=== PATIENT | male | born 1945 | race Caucasian/White ===

== ENCOUNTER 2016-11-28 19:08 | Emergency (ER) | payer MEDICARE, BC ==
[2016-11-28] MEDS ORDERED: DOXYcycline CAP(*) 100 MG PO ONE (20:30)
[2016-11-28 21:40] LABS: Hematocrit 42 % (42-52); Hemoglobin 14.2 g/dl (14.0-18.0); Mean Corpuscular HGB Conc 34 g/dl (31-36); Mean Corpuscular Hemoglobin 34 pg (27-31); Mean Corpuscular Volume 101 fL (80-94); Mean Platelet Volume 10 um3 (7.4-10.4); Red Blood Count 4.14 10^6/ul (4.0-5.4); Red Cell Distribution Width 13 % (10.5-15); White Blood Count 3.7 10^3/ul (3.5-10.8)
[2016-11-28 21:45] LABS: Comments Flag Yes
[2016-11-28 21:46] LABS: Add Diff/Slide Review? Slide Review Added
--- NOTE | 2016-11-28 22:38 | ED ---
Brigitte Khalil Salem, scribed for Giovanny Hansen MD on 11/28/16 at 2054 . Skin Complaint - HPI Summary HPI Summary: Patient is a 71 y/o M who presents to the ED with a fever throughout most of the day, worse since onset. He reports a bullseye to left shoulder. He states that he took Tylenol this morning because of right shoulder pain secondary to physical activity, but is unsure if fever was present at that time. Pt also states that he was seen at the Urgent care out of a concern of his hx of UTI and sepsis last year. - History of Current Complaint Chief Complaint: EDFever Time Seen by Provider: 11/28/16 20:21 Stated Complaint: FEVER Hx Obtained From: Patient, Family/Nurseryman Assistant Onset/Duration: Started Hours Ago, Atraumatic, Still Present, Worse Since Timing: Constant Onset Severity: Moderate Current Severity: Moderate Pain Intensity: 0 Pain Scale Used: 0-10 Numeric Skin Location: Other: - Left shoulder. Character: Redness Aggravating Symptom(s): Nothing Alleviating Symptom(s): Nothing Associated Signs & Symptoms: Fever Related History: Possible Reaction to: Insect - Additional Pertinent History Primary Care Physician: [id number] - Allergy/Home Medications Allergies/Adverse Reactions: Allergies Allergy/AdvReac Type Severity Reaction Status Date / Time No Known Allergies Allergy Verified 11/28/16 21:42 PMH/Surg Hx/FS Hx/Imm Hx Endocrine/Hematology History: Reports: Hx Anemia Denies: Hx Diabetes Cardiovascular History: Reports: Hx Atrial Fibrillation Denies: Hx Angina, Hx Coronary Artery Disease, Hx Hypercholesterolemia, Hx Hypertension, Hx Myocardial Infarction, Hx Valvular Heart Disease Respiratory History: Denies: Hx Asthma, Hx Chronic Obstructive Pulmonary Disease (COPD) History: Reports: Other Problems/Disorders - prostate ca Sensory History: Reports: Hx Contacts or Glasses Opthamlomology History: Reports: Hx Contacts or Glasses - Cancer History Cancer Type, Location and Year: Prostate CA, prostatectomy - Surgical History Surgery Procedure, Year, and Place: PROSTATECTOMY Infectious Disease History: No Infectious Disease History: Denies: Traveled Outside the [place] in Last 30 Days - Family History Known Family History: Positive: Hypertension Family History: Prostate CA: Father, grandfather - Social History Alcohol Use: Rare Alcohol Amount: 1 DRINK Hx Substance Use: No Substance Use Type: Reports: None Hx Tobacco Use: No Smoking Status (MU): Never Smoked Tobacco Review of Systems Positive: Fever Negative: Vomiting Positive: Other - Right shoulder pain. Positive: Other - "Bullseye" to left shoulder. All Other Systems Reviewed And Are Negative: Yes Physical Exam Triage Information Reviewed: Yes Vital Signs On Initial Exam: Initial Vitals Temp Pulse Resp BP Pulse Ox 98.6 F 64 18 150/84 100 11/28/16 19:17 11/28/16 19:17 11/28/16 19:17 11/28/16 19:17 11/28/16 19:17 Vital Signs Reviewed: Yes Appearance: Positive: Well-Appearing, No Pain Distress Skin: Positive: Warm, Skin Color Reflects Adequate Perfusion, Dry, Other - 6 to 7cm bullseye lesion on left deltoid. Head/Face: Positive: Normal Head/Face Inspection Eyes: Positive: Normal Neck: Positive: Supple, Nontender Respiratory/Lung Sounds: Positive: Clear to Auscultation, Breath Sounds Present Cardiovascular: Positive: RRR Abdomen Description: Positive: Nontender, Soft Bowel Sounds: Positive: Present Musculoskeletal: Positive: Normal Neurological: Positive: Normal Psychiatric: Positive: Normal, Affect/Mood Appropriate Diagnostics - Vital Signs Vital Signs Temp Pulse Resp BP Pulse Ox 11/28/16 20:20 99.7 F 68 16 128/79 98 11/28/16 20:17 64 97 11/28/16 20:15 128/79 11/28/16 19:17 98.6 F 64 18 150/84 100 - Laboratory Lab Results: Lab Results 11/28/16 11/28/16 Range/Units 21:22 21:22 WBC 3.7 (3.5-10.8) 10^3/ul RBC 4.14 (4.0-5.4) 10^6/ul Hgb 14.2 (14.0-18.0) g/dl Hct 42 (42-52) % MCV 101 H (80-94) fL MCH 34 H (27-31) pg MCHC 34 (31-36) g/dl RDW 13 (10.5-15) % Plt Count 77 L (150-450) 10^3/ul MPV 10 (7.4-10.4) um3 Neut % (Auto) 75.9 (38-83) % Lymph % (Auto) 10.7 L (25-47) % Kent % (Auto) 12.8 H (1-9) % Eos % (Auto) 0.1 (0-6) % Baso % (Auto) 0.5 (0-2) % Absolute Neuts (auto) 2.8 (1.5-7.7) 10^3/ul Absolute Lymphs (auto) 0.4 L (1.0-4.8) 10^3/ul Absolute Monos (auto) 0.5 (0-0.8) 10^3/ul Absolute Eos (auto) 0 (0-0.6) 10^3/ul Absolute Basos (auto) 0 (0-0.2) 10^3/ul Absolute Nucleated RBC 0 10^3/ul Nucleated RBC % 0.1 C-Reactive Protein 41.51 H (< 5.00) mg/L Result Diagrams: 11/28/16 21:22 Lab Statement: Any lab studies that have been ordered have been reviewed, and results considered in the medical decision making process. Re-Evaluation - Re-Evaluation First Eval Re-Evaluation Time: 22:15 Comment: Discussed plan with pt. Course/Dx - Course Course Of Treatment: Mr. Kulkarni presented with fever and was found to have a lesion on his shoulder that looks like erythema chronica migrans. Labs were sent out for tick-borne PCR and he was treated with doxycycline. - Diagnoses Provider Diagnoses: tick borne illness Discharge - Discharge Plan Condition: Stable Disposition: HOME Prescriptions: DOXYcycline CAP(*) [DOXYcycline 100MG CAP(*)] 100 mg PO BID #28 cap Patient Education Materials: Tick Bite (ED) Referrals: Pete Baeza MD [Primary Care Provider] - Additional Instructions: Please follow up with your primary care provider. The documentation as recorded by the Brigitte rush Salem accurately reflects the service I personally performed and the decisions made by , Giovanny Hansen MD.
[2016-11-28 22:51] VITALS: BP 122/81
[2016-12-02 01:31] LABS: B garinii/B afzelii PCR Negative (Negative); B mayonii PCR Negative (Negative); B. miyamotoi PCR, B Negative (Negative); Babesia divergens/MO-1 Negative (Negative); Babesia ducani Negative (Negative); Ehrlichia ewingii/canis Negative (Negative)
== END 2016-11-28 22:45 | disposition home or self-care (01) ==
LOC: ED 19:08
DX: A93.8 Other specified arthropod-borne viral fevers (principal); R21 Rash and other nonspecific skin eruption; Z87.440 Personal history of urinary (tract) infections; I48.91 Unspecified atrial fibrillation; Z85.46 Personal history of malignant neoplasm of prostate; Z90.79 Acquired absence of other genital organ(s)
CPT/HCPCS: 36415; 85025; 86140; 87476; 87798; 99283; A9270-GY

== ENCOUNTER 2018-09-19 09:36 | Emergency (ER) | payer MEDICARE, BC ==
--- OUTSIDE RECORDS SUMMARY | 2018-09-19 10:26 | XMS REPORT | Continuity of Care Document ---
:1945 External Reference #:[id number] Author Name Gilson Conn M.D. Address [address] [place] [address] Care Team Providers Name Role Phone Pete Baeza M.D. Primary Care Physician Unavailable Payers Date Identification Numbers Payment Provider Subscriber Policy Number: [id number] Medicare - [facility] Giovanny Kulkarni PayID: [id number] [address] [place] [address] Policy Number: [id number] [facility] Giovanny Morales Kulkarni PayID: [id number] [address] [address] [place] [address] Advance Directives Description No Information Available Problems Active Problems Provider Date Gastroesophageal reflux disease Onset: History of malignant neoplasm of prostate Onset: Atrial fibrillation Onset: Nuclear senile cataract Gilson Conn M.D. Onset: 05/11/2015 Migraine with typical aura Gilson Conn M.D. Onset: 07/13/2017 Lyme disease Onset: Vitreous opacities Gilson Conn M.D. 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 ETOH Use Occasionally consumes alcohol Tobacco Use Start: Unknown Patient has never smoked Recreational Drug Use Never Used Drugs Smoking Status Reviewed: 08/30/18 Patient has never smoked Allergies, Adverse Reactions, Alerts Description No Known Drug Allergies Medications Active Medications SIG Qnty Indications Ordering Provider Date Atenolol daily Unknown 25mg Tablets Viagra as needed Unknown 50mg Tablets Vitamin B-12 1 daily Unknown 500mcg Tablets Sub Lorazepam 1/2 pill as Unknown 2mg Tablets needed Prevacid as needed Unknown 15mg Capsules DR Multivitamin Adult daily Unknown Tablets Immunizations Description No Information Available Vital Signs Description No Information Available Results Description No Information Available Procedures Date Code Description Status 07/13/2017 64158 Est Patient Comprehensive Exam Completed 06/20/2016 02109 Est Patient Comprehensive Exam Completed 05/11/2015 56224 Est Patient Comprehensive Exam Completed 02/24/2013 31354 Est Patient Comprehensive Exam Completed 02/24/2011 67651 Est Patient Comprehensive Exam Completed 01/24/2009 13971 Est Patient Comprehensive Exam Completed 12/30/2006 51128 Determination Of Refractive State Completed 12/30/2006 62774 Est Patient Comprehensive Exam Completed 12/18/2004 46663 Determination Of Refractive State Completed 12/18/2004 99092 Est Patient Comprehensive Exam Completed Encounters Description No Information Available Plan of Treatment 08/30/2018 - Gilson Conn M.D.H25.13 Age-related nuclear cataract, bilateralComments:Smoking can increase the risk of developing or worsening any eye related disease, as well as affect your overall health. If you are a smoker , we strongly recommend that you quit.If you are not a smoker, we strongly recommend that you do not start. You have been diagnosed with cataracts. If you are happy with your vision as it is now, then we will see you at your next scheduled appointment. If you feel like your vision is getting worse before your scheduled appointment, please call Tila Iglesias at .Follow up:1 Year Follow Up Diagnostic Refraction You can expect to have your eyes dilated at your next visit.If Dr. Conn orders any additional testing , it may require extra time. We recommend that you bring sunglasses, as dilation drops often make you light sensitive until they wear off. We always recommend you bring someone to drive you home if you are uncomfortable driving with your eyes dilated. If you have any questions before your next visit, feel free to call our office at .H43.393 Other vitreous opacities, bilateral
[2018-09-19 10:33] VITALS: BP 141/81
--- NOTE | 2018-09-19 11:14 | UC ---
General HPI - HPI Summary HPI Summary: Patient has a swollen thumb it is not painful and he did injure it back in may 11 opening a jar, but it resolved. he was playing gold. his entire hand swelled. he now has just thumb swelling. he is concerned as he had lyme 1 year ago and has had muscular pain and multiple joint pain and weakness since then. Very fatiqued and not able to do much - History of Current Complaint Chief Complaint: UCUpperExtremity Stated Complaint: SWOLLEN THUMB Time Seen by Provider: 09/19/18 10:34 Hx Obtained From: Patient Onset/Duration: Gradual Onset, Lasting Days Timing: Constant Onset Severity: Mild Current Severity: None Pain Intensity: 0 - Allergy/Home Medications Allergies/Adverse Reactions: Allergies Allergy/AdvReac Type Severity Reaction Status Date / Time No Known Allergies Allergy Verified 09/19/18 10:33 PMH/Surg Hx/FS Hx/Imm Hx Previously Healthy: Yes - Surgical History Surgical History: Yes Surgery Procedure, Year, and Place: PROSTATECTOMY, cholecystectomy, hernia - Family History Known Family History: Positive: Hypertension Family History: Prostate CA: Father, grandfather - Social History Alcohol Use: Occasionally Alcohol Amount: 1 DRINK Substance Use Type: None Smoking Status (MU): Never Smoked Tobacco - Immunization History Most Recent Influenza Vaccination: 2014 Most Recent Tetanus Shot: unk Most Recent Pneumonia Vaccination: up to date Review of Systems All Other Systems Reviewed And Are Negative: Yes Constitutional: Positive: Fatigue Musculoskeletal: Positive: Arthralgia, Decreased ROM, Edema, Myalgia Is Patient Immunocompromised?: No Physical Exam Triage Information Reviewed: Yes Appearance: Well-Appearing, Well-Nourished, Pain Distress Vital Signs: Initial Vital Signs Temp 96.8 F 09/19/18 10:26 Pulse 61 09/19/18 10:26 Resp 16 09/19/18 10:26 BP 141/81 09/19/18 10:26 Pulse Ox 100 09/19/18 10:26 Vital Signs Reviewed: Yes Eye Exam: Normal ENT Exam: Normal Dental Exam: Normal Neck exam: Normal Respiratory Exam: Normal Cardiovascular Exam: Normal Abdominal Exam: Normal Bowel Sounds: Positive: Present Musculoskeletal: Positive: 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 follow up with dr Gar for your joint and muscle aches for possible post lyme disease syndrome 2. Your xray shows arthritis in the thumb 3. Follow up with orthopedics as needed. 4. Warm water soaks will help with the swelling. - Billing Disposition and Condition Condition: STABLE Disposition: Home - Attestation Statements Provider Attestation: I was available for consult. This patient was seen by the KRISTOPHER and plan of care discussed with me. The patient was not seen by or examined by me -Janis Diaz MD
--- NOTE | 2018-09-20 07:56 | PN ---
Progress Note - Progress Note Date of Service: 09/19/18 Note: Xray thumb NEG
== END 2018-09-19 11:26 | disposition home or self-care (01) ==
LOC: UCEAST 09:36
DX: M79.89 Other specified soft tissue disorders (principal); M19.042 Primary osteoarthritis, left hand; R53.83 Other fatigue; A69.20 Lyme disease, unspecified
CPT/HCPCS: 99211; G0463

== ENCOUNTER 2019-02-15 00:22 | Emergency (ER) | payer MEDICARE, BC ==
[2019-02-15] MEDS ORDERED: Ondansetron INJ* 2 MG/ML VIAL IV ONE (00:28)
[2019-02-15] MEDS ORDERED: NS 0.9% 1000 ML** 2,000 ML IV ONE (00:28)
[2019-02-15] MEDS ORDERED: Morphine 4 MG/ML VIAL (1 ml) 4 MG/ML VIAL IV ONE (00:28)
--- OUTSIDE RECORDS SUMMARY | 2019-02-15 00:40 | XMS REPORT | Continuity of Care Document ---
:1945 External Reference #:[id number] Author Name Parrish Gramajo MD (transmitted by agent of provider Leni Pacheco) Address [address] [place] [id number] Care Team Providers Name Role Phone Pete Baeza MD - Shake Backboard Notcher Care Team Information Welder Tack [phone] Problems Active Problems Provider Date Dyspnea Klever Abdi M.D., [facility], [facility] Onset: 02/08/2018 Paroxysmal [facility]: Atrial fibrillation [facility] Onset: 09/14/2013 Social History Type Date Description Comments Sex Unknown ETOH Use Occasionally consumes alcohol Tobacco Use Start: Unknown Patient has never smoked Recreational Drug Use Denies Drug Use Smoking Status Reviewed: 02/03/19 Patient has never smoked Exercise Type/Frequency Exercises regularly Allergies, Adverse Reactions, Alerts Active Allergies Reaction Severity Comments Date Aspirin avoids due to bleeding problem 09/05/2015 Inactive Allergies NKDA 09/14/2013 Medications Active Medications SIG Qnty Indications Ordering Date Provider Atenolol 1 by mouth every 90tabs Klever Cerda 01/11/2018 25mg Tablets day Kei Abdi, [facility] Lorazepam 1 every 6 hours as 90tabs Unknown 1mg Tablets needed Viagra by mouth 0.5 or 1 12tabs Unknown 100mg Tablets tab 1h before intercourse Multivitamins 1 by mouth every 30caps Unknown Capsules day(with iron) Lansoprazole 1 by mouth as 30caps Unknown 15mg needed Capsules DR MARTINEZ Vitamin B12 1 by mouth every 90tabs Unknown 500mcg day Tablets Acetaminophen Extra 1-2 tabs 3 times Unknown Strength daily as needed for 500mg Tablets pain Probiotic 1 by mouth every Unknown Capsules day as needed Imodium A-D as directed Unknown 2mg Tablets Claritin 1 by mouth every Unknown 10mg Capsules day as needed Benadryl Allergy take 1-2 tablets by Unknown 25mg mouth every night Capsules at bedtime as needed Iron 27 1 by mouth every Unknown 240(27Fe) mg other day Tablets Medications Administered in Office Medication SIG Qnty Indications Ordering Provider Date Inj, Regadenoson, 0.1 MG Klever Abdi M.D., 03/22/2018 Injection FACC, FASNC Technetium TC 99M Klever Abdi M.D., 03/22/2018 Tetrofosmin, Per Unit Dose CECILC, FASNC Up To 40 Millicuries Injection Technetium TC 99M Klever Abdi M.D., 09/08/2016 Tetrofosmin, Per Unit Dose FACC, FASNC Up To 40 Millicuries Injection Immunizations Description No Information Available Vital Signs Date Vital Result Comment 02/03/2019 2:33pm Height 72 inches 6'0" Weight 165.00 lb w/ shoes Heart Rate 56 /min BP Systolic Sitting 128 mmHg BP Diastolic Sitting 83 mmHg BMI (Body Mass Index) 22.4 kg/m2 10/19/2018 9:41am Height 72 inches 6'0" Weight 169.50 lb Heart Rate 60 /min BP Systolic Sitting 110 mmHg BP Diastolic Sitting 72 mmHg Respiratory Rate 14 /min Body Temperature 96.8 F BMI (Body Mass Index) 23.0 kg/m2 Results Test Date Facility Test Result H/L Range Note Vitamin B12 And 11/01/2018 [facility] Vitamin B12 1212 pg/mL High 180-914 1 Folate Serum [address] [place] [address] [phone] Folic Acid (Folate) > 20.00 ng/mL >3.99 Laboratory test 11/01/2018 [facility] Ferritin 104.8 ng/mL Normal 24-[address] [place] [address] [phone] Iron & Iron 11/01/2018 [facility] Iron 130 g/dL Normal 50- 212 Binding Capacity [address] [place] [address] [phone] Unsaturated Iron Binding < 248 g/dL Total Iron Binding Capacity 263 g/dL Normal 250-450 Transferrin 188 mg/dL Low 203-362 % Iron Saturation 49 % Normal 15-55 Laboratory test 10/05/2018 [facility] C Reactive 7.32 mg/L Normal <8.[address] [place] [address] [phone] Connective 10/05/2018 [facility] Anti-Nuclear 0.5 U [address] [place] [address] [phone] Cyclic Citrullinated Peptide <15.6 U 3 Interpretation See Comment 4 CBC Auto 10/05/2018 [facility] White Blood 4.0 10^3/uL Normal 3.5-10.[address] [place] [address] [phone] Red Blood Count 3.55 10^6/uL Low 4.18-5.48 Hemoglobin 11.9 g/dL Low 14.0-18.0 Hematocrit 35 % Low 42-52 Mean Corpuscular Volume 98 fL High 80-94 Mean Corpuscular Hemoglobin 34 pg High 27-31 Mean Corpuscular HGB Conc 34 g/dL Normal 31-36 Red Cell Distribution Width 13 % Normal 10.5-15 Platelet Count 113 10^3/uL Low 150-450 Mean Platelet Volume 9.5 fL Normal 7.4-10.4 Abs Neutrophils 2.0 10^3/uL Normal 1.5-7.7 Abs Lymphocytes 1.3 10^3/uL Normal 1.0-4.8 Abs Monocytes 0.5 10^3/uL Normal 0-0.8 Abs Eosinophils 0.2 10^3/uL Normal 0-0.6 Abs Basophils 0.0 10^3/uL Normal 0-0.2 Abs Nucleated RBC 0.0 10^3/uL Granulocyte % 48.9 % Lymphocyte % 32.9 % Monocyte % 12.9 % Eosinophil % 4.5 % Basophil % 0.8 % Nucleated Red Blood Cells % 0.1 Laboratory test 10/05/2018 [facility] Erythrocyte Sed 13 mm/Hr Normal 0-[address] [place] [address] [phone] 1 Normal Range 180 to 914 Indeterminate Range 145 to 180 Deficient Range <145 2 REFERENCE VALUE <=1.0 (Negative) 3 REFERENCE VALUE <20.0 (Negative) 4 Tests for antibodies to dsDNA and ELICIA antigens are not performed automatically unless the RITA result is > or = 3.0 U. Studies performed at [facility] indicate that positive RITA results <3.0 U are rarely accompanied by positive second order tests. Test Performed by: [facility] [address] [place] [address] Procedures Description No Information Available Medical Devices Description No Information Available Encounters Type Date Location Provider Dx Diagnosis Office Visit 10/19/2018 [facility] Yuan R53.83 Other fatigue 9:30a Infectious Diseases Kei Gar D64.9 Anemia, unspecified Office Visit 10/12/2018 9:30a [facility]opedic Abner M65.312 Trigger thumb, [facility] [place] left thumb C.M.A. Office Visit 10/05/2018 9:30a [facility] Yuan M79.10 Myalgia , Infectious Cong, unspecified site Diseases Kei M25.542 Pain in joints of left hand Assessments Date Code Description Provider 02/03/2019 E29.1 Testicular hypofunction Parrish Gramajo MD 02/03/2019 C61 Malignant neoplasm of prostate Parrish Gramajo MD 10/19/2018 R53.83 Other fatigue Scott Gar M.D. 10/19/2018 D64.9 Anemia, unspecified Scott Gar M.D. 10/12/2018 M65.312 Trigger thumb, left thumb Abner Whitney MD 10/05/2018 M79.10 Myalgia, unspecified site Scott Gar M.D. 10/05/2018 M25.542 Pain in joints of left hand Scott Gar M.D. Plan of Treatment Future Appointment(s):03/09/2019 9:00 am - Parrish Gramajo MD at [facility]02/03/2019 - Parrish Gramajo MDE29.1 Testicular hypofunctionNew Labs:Ferritin, Scheduled: 02/04/19FSH And LH, Scheduled: Comp Metabolic Panel, Scheduled: 02/04/19Acth, Scheduled: 02/04/19Cortisol, Scheduled: 02/04/19Insulin-Like Growth Factor 1, Scheduled: 02/04/19Free T4 ( Free Thyroxine), Scheduled: 02/04/19TSH (Thyroid Stim Horm), Scheduled: Testosterone Total, Scheduled: 02/04/19Sex Hormone Binding Globulin, Scheduled : 02/04/19CBC Auto Diff, Scheduled: 02/04/19New Xrays:MRI Brain W/Wo, Scheduled : 02/04/19Follow up:1 monthInstructions:1. Return at your convenience for fasting blood tests at hospital lab. 2. We will contact you to schedule a pituitary MRI. 3. Return in 1 month for a follow-up visit.C61 Malignant neoplasm of prostate Functional Status Description No Information Available Mental Status Description No Information Available Referrals Refer to Reason for Referral Status Appt Date Abner Whitney MD 73 yo man with left thumb pain and swelling Sent 00/00/ 0000 ?tendonitis [address] [place] [address] [phone]
[2019-02-15 00:51] LABS: ABS Lymphocytes 0.9 10^3/ul (1.0-4.8); ABS Monocytes 0.6 10^3/ul (0-0.8); ABS Neutrophils 6.8 10^3/ul (1.5-7.7); Eosinophil % 0.6 %; Hematocrit 42 % (42-52); Hemoglobin 14.8 g/dL (14.0-18.0); Lymphocyte % 10.4 %; Mean Corpuscular HGB Conc 35 g/dL (31-36); Mean Corpuscular Hemoglobin 34 pg (27-31); Mean Corpuscular Volume 96 fL (80-94); Mean Platelet Volume 9.7 fL (7.4-10.4); Nucleated Red Blood Cells % 0.1; Platelet Count 103 10^3/uL (150-450); Red Blood Count 4.37 10^6 /uL (4.18-5.48); Red Cell Distribution Width 13 % (10-15); White Blood Count 8.4 10^3/uL (3.5-10.8)
--- NOTE | 2019-02-15 00:59 | ED ---
Abdominal Pain/Male - HPI Summary HPI Summary: The patient is a 73 y/o M arriving by ambulance to [facility] accompanied by with a chief complaint of diffuse abd pain, nausea, and vomiting last night. He reports that he began feeling unwell this afternoon with abdominal cramping in the umbilical region and decreased appetite. He then developed nausea and vomiting. He usually has episodes a few months apart and goes away overnight with fatigue the next morning. He denies any urinary incontinence. Currently, his symptoms are rated 5/10 in severity. He had an US recently, ordered by Dr. Muñoz, oncology. No recent Abd/Pel CT. PMHx: afib, pancreatitis, prostate cancer with prostatectomy and radiation treatment, cholecystectomy, hernia. Nonsmoker, occasional EtOH, no substance use. Medications reviewed. Allergies noted. - History of Current Complaint Chief Complaint: EDAbdPain Stated Complaint: ABD PAIN PER EMS Time Seen by Provider: 02/15/19 00:25 Hx Obtained From: Patient, Family/Waste Water Operator - Onset/Duration: Sudden Onset, Lasting Hours, Still Present Timing: Lasting Hours Severity Initially: Moderate Severity Currently: Moderate Pain Intensity: 5 Pain Scale Used: 0-10 Numeric Location: Diffuse Radiates: No Character: Dull Aggravating Factor(s): Nothing Alleviating Factor(s): Nothing Associated Signs And Symptoms: Positive: Decreased Appetite, Nausea, Vomiting. Negative: Urinary Symptoms - no incontinence - Allergies/Home Medications Allergies/Adverse Reactions: Allergies Allergy/AdvReac Type Severity Reaction Status Date / Time mooney Allergy Severe SWELLING, Verified 02/11/19 15:22 ITCHY MOUTH PMH/Surg Hx/FS Hx/Imm Hx Endocrine/Hematology History: Reports: Hx Anemia Denies: Hx Diabetes Cardiovascular History: Reports: Hx Atrial Fibrillation Denies: Hx Angina, Hx Coronary Artery Disease, Hx Hypercholesterolemia, Hx Hypertension, Hx Myocardial Infarction, Hx Pacemaker/ICD, Hx Valvular Heart Disease Respiratory History: Denies: Hx Asthma, Hx Chronic Obstructive Pulmonary Disease (COPD) GI History: Reports: Other GI Disorders - pancreatitis History: Reports: Other Problems/Disorders - prostate ca Denies: Hx Dialysis, Hx Renal Disease Sensory History: Reports: Hx Contacts or Glasses Denies: Hx Hearing Aid Opthamlomology History: Reports: Hx Contacts or Glasses Psychiatric History: Denies: Hx Panic Disorder - Cancer History Cancer Type, Location and Year: Prostate CA; radiation Hx Chemotherapy: No Hx Radiation Therapy: Yes - Surgical History Surgical History: Yes Surgery Procedure, Year, and Place: PROSTATECTOMY,. cholecystectomy,. hernia. LUMBAR - CHEMONUCLEOSIS INJECTION SEDATED IN [place] Infectious Disease History: Yes Infectious Disease History: Denies: Traveled Outside the [place] in Last 30 Days - Family History Known Family History: Positive: Hypertension Family History: Prostate CA: Father, grandfather - Social History Alcohol Use: Occasionally Alcohol Amount: 1 DRINK Hx Substance Use: No Substance Use Type: Reports: None Hx Tobacco Use: No Smoking Status (MU): Never Smoked Tobacco Review of Systems Positive: Abdominal Pain - diffuse, Vomiting, Nausea, Other - decreased appetite Negative: incontinence All Other Systems Reviewed And Are Negative: Yes Physical Exam - Summary Physical Exam Summary: Appearance: Ill-appearing man sitting in stretcher vomiting, Well-nourished Skin: Warm, dry, no obvious rash Eyes: sclera anicteric, no conjunctival pallor ENT: mucous membranes moist, pharynx appears normal Neck: Supple, nontender Respiratory: Clear to auscultation, no signs of respiratory distress Cardiovascular: Normal S1, S2. No murmurs. Normal distal pulses in tibial and radial bilaterally. Abdomen: Soft, nontender, normal active bowel sounds present Musculoskeletal: Normal, Strength/ROM Intact Neurological: A&Ox3, awake and alert, mentation is normal, speech is fluent and appropriate Psychiatric: affect is normal, does not appear anxious or depressed Triage Information Reviewed: Yes Vital Signs On Initial Exam: Initial Vitals Temp Pulse Resp BP Pulse Ox 97.0 F 59 18 166/92 99 02/15/19 00:27 02/15/19 00:27 02/15/19 00:27 02/15/19 00:27 02/15/19 00:27 Vital Signs Reviewed: Yes Diagnostics - Vital Signs Vital Signs Temp Pulse Resp BP Pulse Ox 02/15/19 00:27 97.0 F 59 18 166/92 99 - Laboratory Lab Results: Lab Results 02/15/19 Range/Units 00:37 WBC 8.4 (3.5-10.8) 10^3/uL RBC 4.37 (4.18-5.48) 10^6 /uL Hgb 14.8 (14.0-18.0) g/dL Hct 42 (42-52) % MCV 96 H (80-94) fL MCH 34 H (27-31) pg MCHC 35 (31-36) g/dL RDW 13 (10-15) % Plt Count 103 L (150-450) 10^3/uL MPV 9.7 (7.4-10.4) fL Neut % (Auto) 81.3 % Lymph % (Auto) 10.4 % [place] % (Auto) 7.3 % Eos % (Auto) 0.6 % Baso % (Auto) 0.4 % Absolute Neuts (auto) 6.8 (1.5-7.7) 10^3/ul Absolute Lymphs (auto) 0.9 L (1.0-4.8) 10^3/ul Absolute Monos (auto) 0.6 (0-0.8) 10^3/ul Absolute Eos (auto) 0.0 (0-0.6) 10^3/ul Absolute Basos (auto) 0.0 (0-0.2) 10^3/ul Absolute Nucleated RBC 0.0 10^3/ul Nucleated RBC % 0.1 Result Diagrams: 02/15/19 00:37 02/15/19 00:43 Lab Statement: Any lab studies that have been ordered have been reviewed, and results considered in the medical decision making process. Re-Evaluation - Re-Evaluation First Eval Re-Evaluation Time: 02:10 Change: Improved Comment: Pt's pain has improved. He would like to defer from CT. Abdominal Pain Male Course/Dx - Course Course Of Treatment: Pt is a 73 y/o M with cc of sudden onset diffuse abd pain, nausea, vomiting, and decreased appetite with hx of similar episodes. Upon physical exam, the pt is an ill-appearing male sitting in the stretcher vomiting. Blood work reveals MCV of 96, MCH of 34, plt count of 103, abs lymphs of 0.9, sodium of 133, BUN of 28, and creatinine of 1.34 but is otherwise unremarkable. UA obtained and negative for infection. In the ED course, the pt was administered fluids, Zofran, and Morphine for pain. Pt has decided to defer from the Abd/Pel CT as his pain has improved. With fairly unremarkable exam and lab results, I believe this is deemed appropriate to do so. We discussed results and plan for discharge with rx for Zofran. Dx of abdominal pain, vomiting. - Diagnoses Provider Diagnoses: Abdominal pain, Vomiting Discharge ED - Sign-Out/Discharge Documenting (check all that apply): Patient Departure - Patient will be discharged home. Patient Received Moderate/Deep Sedation with Procedure: No - Discharge Plan Condition: Improved Disposition: HOME Prescriptions: Ondansetron ODT TAB* [Zofran 4 MG Odt TAB*] 8 mg PO Q6H PRN #12 tab.odt PRN Reason: Nausea Patient Education Materials: Acute Nausea and Vomiting (ED) Referrals: Herb Zhong MD [Medical Doctor] - As Soon As Possible - Billing Disposition and Condition Condition: IMPROVED Disposition: Home - Attestation Statements Document Initiated by Dorothyibe: Yes Documenting Scribe: Lawanda Watts Provider For Whom Lai is Documenting (Include Credential): Dr. Giovanny Pruett MD Scribe Attestation: Lawanda Khalil scribed for Dr. Giovanny Pruett MD on 02/20/19 at 1233. Scribe Documentation Reviewed: Yes Provider Attestation: The documentation as recorded by the Lawanda rush accurately reflects the service I personally performed and the decisions made by me, Dr. Giovanny Pruett MD Status of Scrblair Document: Viewed
[2019-02-15 01:11] LABS: Albumin 4.2 g/dL (3.2-5.2); Albumin/Globulin Ratio 1.4 (1-3); BUN/Creatinine Ratio 20.9 (8-20); Calcium 9.9 mg/dL (8.6-10.3); EGFR African American 63.2 (>60); EGFR Non-African American 52.3 (>60); Globulin 3.1 g/dL (2-4); Potassium 4.8 mmol/L (3.5-5.0); Total Bilirubin 0.8 mg/dL (0.2-1.0); Total Protein 7.3 g/dL (6.4-8.9)
[2019-02-15] MEDS ORDERED: Iodixanol* (CONTRAST) 320 MG/ML 100 ML SDV IV ONE (01:15)
[2019-02-15 01:46] LABS: Urine Appearance Cloudy; Urine Bilirubin Negative (Negative); Urine Blood Negative (Negative); Urine Color Yellow; Urine Glucose Negative (Negative); Urine Ketones Negative (Negative); Urine Nitrite Negative (Negative); Urine Protein Negative (Negative); Urine Specific Gravity 1.016 (1.010-1.030); Urine Urobilinogen Negative (Negative)
[2019-02-15 02:48] VITALS: BP 120/75
== END 2019-02-15 02:47 | disposition home or self-care (01) ==
LOC: ED 00:22
DX: R10.9 Unspecified abdominal pain (principal); Z85.46 Personal history of malignant neoplasm of prostate; I48.91 Unspecified atrial fibrillation
CPT/HCPCS: 36415; 80053; 81003; 83605; 83690; 85025; 86140; 96374; 99282; J2405